=== PATIENT | female | born 1965 | race Caucasian/White ===

== ENCOUNTER 2018-05-14 11:52 | Emergency (ER) | payer OTHER ==
[~2018-05-14] VITALS: Ht 167.6 cm; Wt 63.5 kg
[2018-05-14] MEDS ORDERED: FLUOXETINE HCL20 M2 PO (12:21)
--- NOTE | 2018-05-14 13:06 | ED SYNCOPE COMPLAINT ---
See Addendum History of Present Illness General Chief Complaint: Syncope and Near-Syncope Stated Complaint: BIBA, SYNCOPE Source: patient, family Exam Limitations: no limitations Vital Signs & Intake/Output Vital Signs & Intake/Output Vital Signs Date Time Temp Pulse Resp B/P B/P Pulse O2 O2 Flow FiO2 Mean Ox Delivery Rate 05/14 1538 98.3 72 16 136/66 99 Room Air 05/14 1403 84 18 141/69 99 Room Air 05/14 1313 Room Air 05/14 1154 98.0 106 20 153/105 98 Room Air Allergies Coded Allergies: codeine (NAUSEA 05/14/18) Reconcile Medications Fluoxetine HCl (Unknown Strength) CAPSULE (Unknown Dose) PO DAILY MENTAL HEALTH (Reported) Triage Note: PT BIBA FROM HOME S/P SYNCOPAL EPISODE. PT WAS MOWING THE LAWN STARTED TO FEEL DIZZY, WENT INSIDE AND LAID DOWN AND HAD ? SYNCOPAL EPISODE. PT DID NOT FALL. ARRIVES TO ED A/OX3, TEARFUL AND ANXIOUS. DENIES PAIN, C/P, SOB. RA SATS 100%. AWAITING PROVIDER EVAL. Triage Nurses Notes Reviewed? yes HPI: 53 y/o F with significant PMH of depression, comes to the ED c/o syncopal episode that occured this am as she was mowing the law. Pt states she was outside and after about 45 minutes she started feeling more weak, she proceeded then to go inside the house and lay down on the floor. She started feeling her heart race, was diaphoretic, loss consciousness for about 2 minutes as per the son who was with her. She has no recollection of what happened, upon regaining of consciousness, patient stated she felt groggy, with some numbness on her upper and lower extremities, that went away as the minutes went on. Patient is currently going through a very stressful period, one which she did not wish to discuss, immediately turning tearful and anxious when the subject was brought up. she denies any previous syncopal episodes, history of cardiac disease, chest pain, shortness of breath, vomiting, blurred vision, bladder and bowel incontinence. (Asael Hurley MD,[facility]) Past History Travel History Traveled to [place] past 21 day No Medical History Any Pertinent Medical History? see below for history Psychiatric: anxiety, depression Influenza Vaccine: 07/09/15 Psychosocial History What is your primary language Cameroonian Tobacco Use: Quit >30 days ago ETOH Use: denies use Illicit Drug Use: denies illicit drug use (Kurt Friend MD) Surgical History Surgical History: non-contributory Family History Hx Contributory? No (Luis Cortes MD) Review of Systems Review of Systems Constitutional: Reports: see HPI. (Kurt Friend MD) Review of Systems Constitutional: Reports: weakness. EENTM: Reports: no symptoms. Respiratory: Reports: no symptoms. Cardiovascular: Reports: no symptoms. GI: Reports: no symptoms. Genitourinary: Reports: no symptoms. Musculoskeletal: Reports: no symptoms. Skin: Reports: no symptoms. Neurological/Psychological: Reports: no symptoms. All Other Systems: Reviewed and Negative (Luis Cortes MD) Physical Exam Physical Exam General Appearance: alert, awake, anxious, moderate distress Cranial Nerves: normal hearing, normal speech, PERRL, CN grossly intact. No focal neurologic deficit seen. Core Measures ACS in differential dx? No CVA/TIA Diagnosis: No Sepsis Present: No Sepsis Focused Exam Completed? No (Kurt Friend MD) Progress Differential Diagnosis: hyperventilation, orthostatic syncope Plan of Care: Orders Procedure Date/time Status URINALYSIS 05/14 1234 Complete TROPONIN LEVEL 05/14 1234 Complete BASIC ELECTROLYTES PLUS BUN&CR 05/14 1234 Complete EKG 05/14 1157 Active Laboratory Tests 05/14/18 1320: Urinalysis LIGHT H, Urine Color YEL, Urine Clarity CLEAR, Urine pH 8.5 H, Ur Specific [place] 1.015, Urine Protein NEG, Urine Ketones NEG, Urine Nitrite NEG, Urine Bilirubin NEG, Urine Urobilinogen 0.2, Ur Leukocyte Esterase NEG, Ur Microscopic SEDIMENT EXAMINED, Urine RBC 1-3, Urine WBC 3-5 H, Ur Epithelial Cells RARE, Urine Bacteria MOD H, Hyaline Casts 10-15 H, Granular Casts 1-3 H , Urine Mucus FEW, Urine Hemoglobin NEG, Urine Glucose NEG 05/14/18 1256: Anion Gap 7, Estimated GFR > 60, BUN/Creatinine Ratio 16.3, Troponin I < 0.01 (Kurt Friend MD) Diagnostic Imaging: Viewed by Me: Radiology Read. Discussed w/RAD: Radiology Read. CXR Impression: no acute abnormality, no infiltrates Initial ED EKG: normal axis, normal intervals, normal p-waves, normal QRS complex, normal sinus rhythm, no ST T wave changes Rhythm Strip: normal sinus rhythm (Luis Cortes MD) Departure Departure Disposition: HOME OR SELF CARE Condition: Stable Referrals: Willa Bradley MD (PCP/Family) Additional Instructions: Please follow up with your Primary Care Provider about this Emergency Department visit. If symptosm worsen, please return to the Emergency Department. Departure Forms: Customer Survey General Discharge Information (Asael Hurley MD,[facility]) Departure Clinical Impression Primary Impression: Syncope Qualifiers: Syncope type: unspecified Qualified Code: R55 - Syncope and collapse Secondary Impressions: Dehydration after exertion (Luis Cortes MD)
--- NOTE | 2018-05-14 13:47 | RADIOLOGY REPORT ---
EXAMINATION: XR CHEST CLINICAL INFORMATION: Syncopal episode. COMPARISON: None TECHNIQUE: 2 views of the chest were obtained. FINDINGS: The lungs are well-inflated and clear. Trachea is midline in position. No interstitial disease, consolidation, mass, pneumothorax or pleural effusion. The cardiac silhouette is normal in size. The mediastinal, hilar and diaphragmatic contours are normal. Mild spondylosis of the thoracic spine. The upper abdomen is unremarkable. IMPRESSION: No acute pulmonary disease.
[2018-05-14 15:38] VITALS: BP 136/66
== END 2018-05-14 15:47 ==
LOC: ERH 11:52
DX: R55 Syncope and collapse (principal); F32.9 Major depressive disorder, single episode, unspecified; F41.9 Anxiety disorder, unspecified; Z87.891 Personal history of nicotine dependence
CPT/HCPCS: 71046; 81001; 82436; 93005; 93010; 96374; J2405